=== PATIENT | female | born 1945 ===

== ENCOUNTER 2018-09-19 17:39 | Inpatient (IN) | payer OTHER ==
[~2018-09-19 17:39] MED LIST: ALENDRONATE SODI5 MG; SIMVASTATIN 10 MG; SINGULAIR10 MG
[2018-09-23] MEDS ORDERED: ZOCOR20 MG (15:56)
[2018-09-23] MEDS ORDERED: SIMVASTATIN20 MG PO (15:57)
[2018-09-25] MEDS ORDERED: PERCOCET 5-3251 EACH PO (08:22)
== END 2018-09-25 11:27 | disposition home or self-care (01) | DRG 330 ==
LOC: O/R 09-22 10:45 → SURH 09-23 06:01 → O/R 09-23 07:00 → SURH 09-23 11:55
PROVIDERS: ADMIT Surgery
PROC: 0DSP4ZZ Reposition Rectum, Percutaneous Endoscopic Approach (ICD-10-PCS; principal; 2018-09-23 07:00)
PROC: 3E0F7GC Introduction of Other Therapeutic Substance into Respiratory Tract, Via Natural or Artificial Opening (ICD-10-PCS; 2018-09-24)
DX: K62.3 Rectal prolapse (principal); J45.41 Moderate persistent asthma with (acute) exacerbation; R15.9 Full incontinence of feces; I10 Essential (primary) hypertension